=== PATIENT | female | born 1985 | race Caucasian/White ===

== ENCOUNTER 2017-10-13 07:35 | Emergency (ER) | payer OTHER ==
[2017-10-13] MEDS ORDERED: Ondansetron HCl/PF 4 MG/2 ML Vial ONE (08:55)
[2017-10-13 09:04] LABS: #Basophils 0.1 thou/uL (0.0-0.2); #Eosinphils 0.4 thou/uL (0.0-0.7); #Monocytes 0.5 thou/uL (0.11-0.59); #Neutrophils 5.5 thou/uL (1.40-6.50); %Basophils 1.5 % (0.0-1.0); %Eosinophils 4.1 % (0.0-10.0); %Lymphocytes 31.6 % (21.0-51.0); %Monocytes 5.6 % (0.0-10.0); %Neutrophils 57.3 % (42.0-75.0); Hemoglobin 13.2 g/dL (12.0-16.0); Mean Corpuscular HGB CONC 33.8 g/dL (32.0-36.0); Mean Corpuscular Hemoglobin 29.9 pg (27.0-31.0); Mean Corpuscular Volume 88.5 fl (81.0-99.0); Mean Platelet Volume 7.1 fL (7.4-10.4); Platelet Count 417 thou/uL (130-400); RBC Distribution Width 12.3 % (11.5-14.5); Red Blood Cell (RBC) Count 4.39 mill/uL (4.20-5.40); White Blood Cell (WBC) Count 9.6 thou/uL (4.8-10.8)
[2017-10-13 09:24] LABS: ALT (SGPT) 9 U/L (8-55); AST (SGOT) 13 U/L (5-34); Albumin 3.6 g/dL (3.5-5.0); Alkaline Phosphatase 67 U/L (40-150); Anion Gap 11 mmol/L (10-20); BUN (Urea Nitrogen) 9 mg/dL (7.0-18.7); Bilirubin, Total 0.2 mg/dL (0.2-1.2); Calc. Creatinine Clearance 0 mL/min (70-130); Calcium 8.7 mg/dL (7.8-10.44); Carbon Dioxide 22 mmol/L (22-29); Chloride 108 mmol/L (98-107); Estimated GFR-MDRD Greater than 90; Globulin 2.9 g/dL (2.4-3.5); Lipase 54 U/L (8-78); Protein, Total 6.5 g/dL (6.0-8.3); Sodium 137 mmol/L (136-145)
[2017-10-13 09:39] LABS: Glucose 54 mg/dL (70-105)
[2017-10-13 09:46] LABS: Bilirubin Negative (Negative); Blood, Urine Negative (Negative); Clarity CLEAR (Clear); Glucose, Urine (Dipstick) Negative (Negative); Leukocyte Negative (Negative); Nitrite Negative (Negative); Protein, Urine (Dipstick) Negative (Neg-Trace); Specific Gravity, Urine 1.019 (1.002-1.036); Urobilinogen 0.2 mg/dL (0.2-1.0)
[2017-10-13 09:58] LABS: Pregnancy Test - Urine (BHCG) Negative (Negative); Specific Gravity 1.019 (1.002-1.036)
[2017-10-13 09:59] LABS: Pregu Control Background? CLEAR/WHITE (CLR/WHITE); Pregu Control Bar Appear? YES (CONTROL BAR)
== END 2017-10-13 10:20 | disposition home or self-care (01) ==
LOC: ERS 07:35
DX: R11.2 Nausea with vomiting, unspecified (principal); R19.7 Diarrhea, unspecified; E10.9 Type 1 diabetes mellitus without complications; F31.9 Bipolar disorder, unspecified; F41.9 Anxiety disorder, unspecified; F17.210 Nicotine dependence, cigarettes, uncomplicated; Z79.899 Other long term (current) drug therapy
CPT/HCPCS: 36416; 80053; 81003; 81025; 83690; 85025; 96361; 96374; J2405

== ENCOUNTER 2017-11-26 15:10 | Emergency (ER) | payer OTHER ==
[2017-11-26 15:50] LABS: #Basophils 0.1 thou/uL (0.0-0.2); #Eosinphils 0.3 thou/uL (0.0-0.7); #Lymphocytes 2.7 thou/uL (1.20-3.40); #Monocytes 0.6 thou/uL (0.11-0.59); #Neutrophils 6.3 thou/uL (1.40-6.50); %Basophils 0.9 % (0.0-1.0); %Eosinophils 2.6 % (0.0-10.0); %Lymphocytes 27.2 % (21.0-51.0); %Monocytes 6.2 % (0.0-10.0); %Neutrophils 63.1 % (42.0-75.0); Hemoglobin 13.4 g/dL (12.0-16.0); Mean Corpuscular Hemoglobin 29.5 pg (27.0-31.0); Mean Corpuscular Volume 89.4 fl (81.0-99.0); Mean Platelet Volume 7.5 fL (7.4-10.4); Platelet Count 368 thou/uL (130-400); RBC Distribution Width 12.3 % (11.5-14.5); Red Blood Cell (RBC) Count 4.54 mill/uL (4.20-5.40)
[2017-11-26 16:06] LABS: Base Excess-Venous -4.3 mmol/L (0 (+/- 2.5)); Bicarbonate (HCO3v) 20.1 mmol/L (1.0-85.0); CO2 Tension (PvCO2) 34.2 mmHg (41.0-51.0); Calcium, Ionized 1.21 mmol/L (1.12-1.32); Hemoglobin - Calc 14.1 g/dL (12.0-18.0); O2 Tension (PvO2) 66.2 mmHg (35.0-45.0); Potassium 4.3 mmol/L (3.4-4.7); T. Carbon Dioxide 21.1 mmol/L (1.0-85.0); pH (Venous) 7.376 (7.35-7.45); vO2 Saturation-calc 92.5 % (94-98)
--- NOTE | 2017-11-26 16:11 | RAD ---
CHEST 1 VIEW: Date: 11/26/17 HISTORY: Abdominal pain. COMPARISON: 06/11/16. FINDINGS: Normal cardiac silhouette. Lungs and pleural spaces are clear. No pneumothorax or osseous abnormaliti es. IMPRESSION: No acute cardiopulmonary process. POS: [facility]
[2017-11-26 16:18] LABS: ALT (SGPT) 12 U/L (8-55); AST (SGOT) 14 U/L (5-34); Alkaline Phosphatase 93 U/L (40-150); Anion Gap 15 mmol/L (10-20); BUN (Urea Nitrogen) 13 mg/dL (7.0-18.7); Bilirubin, Total 0.2 mg/dL (0.2-1.2); Calc. Creatinine Clearance 0 mL/min (70-130); Calcium 9.1 mg/dL (7.8-10.44); Carbon Dioxide 19 mmol/L (22-29); Chloride 103 mmol/L (98-107); Estimated GFR-MDRD 74; Globulin 3.1 g/dL (2.4-3.5); Glucose 527 mg/dL (70-105); Magnesium 2.1 mg/dL (1.6-2.6); Phosphorus 3.5 mg/dL (2.3-4.7); Potassium 4.5 mmol/L (3.5-5.1); Protein, Total 7.1 g/dL (6.0-8.3); Sodium 132 mmol/L (136-145)
[2017-11-26] MEDS ORDERED: Insulin Regular 300 UNITS/3 ML VIAL ONE (16:53)
[2017-11-26 17:11] LABS: Bilirubin Negative (Negative); Blood, Urine Negative (Negative); Clarity CLEAR (Clear); Glucose, Urine (Dipstick) >=1000 mg/dL (Negative); Leukocyte Negative (Negative); Nitrite Negative (Negative); Protein, Urine (Dipstick) Negative (Neg-Trace); Specific Gravity, Urine 1.027 (1.002-1.036); Urobilinogen 0.2 mg/dL (0.2-1.0)
[2017-11-26 17:21] LABS: BHCG - Serum Negative (NEGATIVE); Pregs Control Background? CLEAR/WHITE (CLR/WHITE); Pregs Control Bar Appear? YES (CONTROL BAR)
== END 2017-11-26 18:35 | disposition home or self-care (01) ==
LOC: ERS 15:10
DX: E10.65 Type 1 diabetes mellitus with hyperglycemia (principal); F31.9 Bipolar disorder, unspecified; F41.9 Anxiety disorder, unspecified; F17.210 Nicotine dependence, cigarettes, uncomplicated; Z79.899 Other long term (current) drug therapy; Z71.6 Tobacco abuse counseling
CPT/HCPCS: 36416; 71045; 80053; 81003; 82010; 82330; 82803; 83735; 84100; 84703; 85025; 96361; 96374; 99406; J1815

== ENCOUNTER 2017-12-17 19:12 | Inpatient (IN) | payer OTHER, SELFPAY ==
[2017-12-17] MEDS ORDERED: Ketorolac Tromethamine 60 MG/2 ML VIAL ONE (21:38)
[2017-12-17] MEDS ORDERED: Dexamethasone 4 mg/ml Vial ONE (21:38)
[2017-12-17 22:09] LABS: Base Excess-Venous -6.8 mmol/L (0 (+/- 2.5)); Bicarbonate (HCO3v) 16.7 mmol/L (1.0-85.0); CO2 Tension (PvCO2) 28.4 mmHg (41.0-51.0); Calcium, Ionized 1.11 mmol/L (1.12-1.32); Hemoglobin - Calc 16.1 g/dL (12.0-18.0); O2 Tension (PvO2) 44.6 mmHg (35.0-45.0); Potassium 4.1 mmol/L (3.4-4.7); T. Carbon Dioxide 17.6 mmol/L (1.0-85.0); pH (Venous) 7.377 (7.35-7.45); vO2 Saturation-calc 80.3 % (94-98)
--- NOTE | 2017-12-17 22:18 | RAD ---
PORTABLE CHEST: 12/17/17 COMPARISON: 11/26/17 study. HISTORY: Sore throat and fever. IMPRESSION: Heart size and mediastinum are witin normal limits. The lungs appear clear of infiltrates. No signifi cant bony findings. IMPRESSION: No active intrathoracic disease. POS: [facility]
[2017-12-17 22:30] LABS: #Basophils 0.1 thou/uL (0.0-0.2); #Lymphocytes 2.2 thou/uL (1.20-3.40); #Neutrophils 5.7 thou/uL (1.40-6.50); %Basophils 0.8 % (0.0-1.0); %Eosinophils 0.3 % (0.0-10.0); %Lymphocytes 24.5 % (21.0-51.0); %Monocytes 10.8 % (0.0-10.0); %Neutrophils 63.7 % (42.0-75.0); Hemoglobin 13.9 g/dL (12.0-16.0); Mean Corpuscular HGB CONC 33.1 g/dL (32.0-36.0); Mean Corpuscular Hemoglobin 29.4 pg (27.0-31.0); Mean Corpuscular Volume 88.7 fl (81.0-99.0); Mean Platelet Volume 7.4 fL (7.4-10.4); Platelet Count 318 thou/uL (130-400); RBC Distribution Width 12.5 % (11.5-14.5); Red Blood Cell (RBC) Count 4.72 mill/uL (4.20-5.40)
[2017-12-17 22:33] LABS: Bilirubin Negative (Negative); Blood, Urine Negative (Negative); Clarity CLEAR (Clear); Glucose, Urine (Dipstick) >=1000 mg/dL (Negative); Leukocyte Negative (Negative); Nitrite Negative (Negative); Protein, Urine (Dipstick) Negative (Neg-Trace); Specific Gravity, Urine 1.034 (1.002-1.036); Urobilinogen 0.2 mg/dL (0.2-1.0)
[2017-12-17 22:55] LABS: ALT (SGPT) 12 U/L (8-55); AST (SGOT) 24 U/L (5-34); Albumin 3.9 g/dL (3.5-5.0); Alkaline Phosphatase 99 U/L (40-150); Anion Gap 21 mmol/L (10-20); BUN (Urea Nitrogen) 9 mg/dL (7.0-18.7); Bilirubin, Total 0.4 mg/dL (0.2-1.2); Calc. Creatinine Clearance 0 mL/min (70-130); Calcium 8.5 mg/dL (7.8-10.44); Carbon Dioxide 14 mmol/L (22-29); Chloride 100 mmol/L (98-107); Estimated GFR-MDRD 62; Globulin 3.6 g/dL (2.4-3.5); Glucose 437 mg/dL (70-105); Potassium 4.5 mmol/L (3.5-5.1); Protein, Total 7.5 g/dL (6.0-8.3); Sodium 130 mmol/L (136-145)
[2017-12-17] MEDS ORDERED: Dextrose 5% in Water 1,000 ML IV PRN (23:48)
[2017-12-17] MEDS ORDERED: Dextrose 50% Abboject 50 ML SYRINGE SLOW IVP PRN (23:48)
[2017-12-18] MEDS ORDERED: Insulin Glargine 15 UNITS in Pre-Filled Syringe 1 EACH SC SCH ×2 (00:45→21:00)
[2017-12-18] MEDS ORDERED: Ondansetron ODT 4 MG TAB SL PRN (02:05)
[2017-12-18] MEDS ORDERED: Ondansetron HCl/PF 4 MG/2 ML Vial IVP PRN (02:05)
[2017-12-18] MEDS ORDERED: Acetaminophen 325 MG TAB PO PRN (02:05)
[2017-12-18] MEDS: Sodium Chloride 0.9% 1,000 ML IV SCH ×2 (03:31→17:22)
[2017-12-18 04:08] VITALS: BMI 28.3
[2017-12-18] MEDS: Insulin Regular 300 UNITS/3 ML VIAL SC PRN ×4 (05:42→23:52)
[2017-12-18 06:31] LABS: Anion Gap 17 mmol/L (10-20); BUN (Urea Nitrogen) 15 mg/dL (7.0-18.7); Calc. Creatinine Clearance 106 mL/min (70-130); Calcium 7.8 mg/dL (7.8-10.44); Carbon Dioxide 12 mmol/L (22-29); Chloride 107 mmol/L (98-107); Estimated GFR-MDRD 74; Glucose 506 mg/dL (70-105); Phosphorus 3.6 mg/dL (2.3-4.7); Potassium 4.9 mmol/L (3.5-5.1); Sodium 131 mmol/L (136-145)
[2017-12-18] MEDS ORDERED: Cepastat Lozenges 1 LOZ PO PRN (07:19)
[2017-12-18] MEDS ORDERED: Chloraseptic Spray 180 ml Bottle PO PRN ×2 (07:19→15:42)
[2017-12-18] MEDS ORDERED: Milk Of Magnesia 30 ML UDCUP PO PRN (07:24)
[2017-12-18] MEDS ORDERED: Calcium Carbonate 500 MG ChewTAB PO PRN (07:24)
[2017-12-18] MEDS ORDERED: Sodium Chloride 0.9% 1,000 ML IV SCH (07:30)
[2017-12-18] MEDS ORDERED: Azithromycin 250 MG TAB PO SCH (07:30)
[2017-12-18] MEDS ORDERED: Insulin Detemir 100 UNITS/ML 30 UNITS in Pre-Filled Syringe 1 EACH SC SCH ×2 (07:30→21:00)
--- NOTE | 2017-12-18 07:45 | HP ---
DATE OF ADMISSION: 12/17/2017 PRIMARY CARE PHYSICIAN: Patient follows [facility]. CHIEF COMPLAINT: Sore throat. HISTORY OF PRESENT ILLNESS: The patient is a 32-year-old female with diabetes mellitus type 1, prese nted to the emergency room with above complaints. Over the last 2-3 days, the patient has sore throat with dry cough. Her maximum temperature at home was 101. She denies any sick contacts, shortness of breath or wheezing. No dysuria, hematuria, urge ncy, skin rash, recent travel, nausea, vomiting, diarrhea reported. In the emergency room, her initial vital signs showed temperature 99.4, respirations 20, pulse 116 wi th blood pressure 120/84. Her ketones was 4.78 with glucose of 437. Please note that patient did no t take Levemir insulin yesterday due to unable to swallow. Group A strep screen was negative in the emergency room. She received IV fluids along with insulin, Toradol, and Decadron. PAST MEDICAL HISTORY: 1. Diabetes mellitus type 1. 2. Anxiety and depression, bipolar disorder. 3. History of genital herpes. 4. Dyslipidemia. PAST SURGICAL HISTORY: 1. in 2006. 2. Appendectomy. 3. History of incision and drainage on the right hand. ALLERGIES: AMOXICILLIN. CURRENT HOME MEDICATIONS: Levemir 30 units twice a day with sliding scale, lithium 900 twice a day, Klonopin as needed. SOCIAL HISTORY: The patient continues to smoke up to 1 pack a day. Drinks alcohol socially. Denies any drug use. FAMILY HISTORY: Positive for hypertension and diabetes. REVIEW OF SYSTEMS: The following complete review of systems was negative, unless otherwise mentioned in the HPI or below: Constitutional: Weight loss or gain, ability to conduct usual activities. Skin: Rash, itching. Eyes: Double vision, pain. ENT/Mouth: Nose bleeding, neck stiffness, pain, tenderness. Cardiovascular: Palpitations, dyspnea on exertion, orthopnea. Respiratory: Shortness of breath, wheezing, cough, hemoptysis, fever or night sweats. Gastrointestinal: Poor appetite, abdominal pain, heartburn, nausea, vomiting, constipation, or diarr hea. Genitourinary: Urgency, frequency, dysuria, nocturia. Musculoskeletal: Pain, swelling. Neurologic/Psychiatric: Anxiety, depression. Allergy/Immunologic: Skin rash, bleeding tendency. PHYSICAL EXAMINATION: VITAL SIGNS: As discussed above. GENERAL: A 32-year-old female with sore throat. HEENT: Head is atraumatic, normocephalic. Sclerae are anicteric. Dry mucous membranes, some erythe ma over the posterior pharynx. NECK: Supple, no JVD, no carotid bruit. LUNGS: Clear to auscultation bilaterally, no wheezing, rales or rhonchi. HEART: S1, S2 present. Regular rate and rhythm, tachycardic, no rubs or gallops. ABDOMEN: Soft, nontender, bowel sounds present. EXTREMITIES: No edema or calf tenderness. NEUROLOGIC: Grossly nonfocal, moves all four extremities. PSYCHIATRY: Alert, awake, oriented x3. SKIN: Warm and dry. LYMPH NODES: No palpable lymph nodes in the neck. PERIPHERAL VASCULAR: Radial pulses palpable bilaterally. MUSCULOSKELETAL: No joint swelling or tenderness. LABORATORY DATA AND X-RAY FINDINGS: CBC showed WBC 9 with hemoglobin 13.9, monocyte 10.8. VBG showe d pH 7.37 with pCO2 of 28.4. Chemistries showed sodium 130 with potassium 4.5, bicarbonate 14, anion gap of 21, ketones 4.78. Chest x-ray by my review was negative for infiltrate. IMPRESSION AND PLAN: 1. Diabetic ketoacidosis. Please note that patient has missed Levemir dose due to unable to take or al diet. The patient will continue IV fluids with Levemir and moderate sliding scale q.4 hourly. We will repeat ketones in a.m. We will monitor labs closely. She denies any chest pain, shortness of breath or focal neurologic deficit. 2. Viral syndrome. A respiratory viral panel has been sent. We will start her on azithromycin unti l the respiratory viral panel comes back. 3. Dehydration/metabolic acidosis due to diabetic ketoacidosis. 4. Chronic kidney disease, stage 2. 5. History of diabetes mellitus type 1, on insulin. 6. Anxiety, depression, bipolar disorder. We will resume her home medications after confirming. 7. Hyperlipidemia. Plan of care was discussed with the patient in detail. She stated understanding.
[2017-12-18] MEDS: Sodium Chloride 0.45% 1,000 ML IV SCH ×3 (08:43→21:30)
[2017-12-18] MEDS ORDERED: Insulin Glargine 30 UNITS in Pre-Filled Syringe 1 EACH SC SCH (09:00)
[2017-12-18 09:47] LABS: BHCG - Serum Negative (NEGATIVE); Pregs Control Background? CLEAR/WHITE (CLR/WHITE); Pregs Control Bar Appear? YES (CONTROL BAR)
[2017-12-18 10:13] LABS: Anion Gap 13 mmol/L (10-20); BUN (Urea Nitrogen) 15 mg/dL (7.0-18.7); Calc. Creatinine Clearance 114 mL/min (70-130); Calcium 7.9 mg/dL (7.8-10.44); Carbon Dioxide 13 mmol/L (22-29); Chloride 109 mmol/L (98-107); Estimated GFR-MDRD 81; Glucose 410 mg/dL (70-105); Potassium 4.7 mmol/L (3.5-5.1); Sodium 130 mmol/L (136-145)
[2017-12-18 14:31] LABS: BUN (Urea Nitrogen) 12 mg/dL (7.0-18.7); Calc. Creatinine Clearance 118 mL/min (70-130); Calcium 8.7 mg/dL (7.8-10.44); Chloride 104 mmol/L (98-107); Estimated GFR-MDRD 84; Glucose 292 mg/dL (70-105); Sodium 130 mmol/L (136-145)
[2017-12-18 14:32] LABS: Carbon Dioxide 20 mmol/L (22-29)
[2017-12-18 14:35] LABS: Anion Gap 10 mmol/L (10-20)
[2017-12-18] MEDS: Acetaminophen/Codeine 30-300mg Tablet PO PRN ×2 (16:06→20:25)
[2017-12-18] MEDS ORDERED: Lidocaine 2% Viscous Solution 10 ML, Aluminum & Magnesium Hydroxide 30 ML SSW SCH (16:30)
[2017-12-18] MEDS ORDERED: clonazePAM 1 MG TAB PO SCH (16:45)
[2017-12-18 18:27] LABS: Anion Gap 8 mmol/L (10-20); BUN (Urea Nitrogen) 10 mg/dL (7.0-18.7); Calc. Creatinine Clearance 127 mL/min (70-130); Calcium 8.1 mg/dL (7.8-10.44); Carbon Dioxide 21 mmol/L (22-29); Chloride 108 mmol/L (98-107); Estimated GFR-MDRD Greater than 90; Glucose 171 mg/dL (70-105); Potassium 3.9 mmol/L (3.5-5.1); Sodium 133 mmol/L (136-145)
[2017-12-18] MEDS: Insulin Glargine 30 UNITS in Pre-Filled Syringe 1 EACH SC SCH (20:00)
[2017-12-18] MEDS: Benzonatate 100 MG CAP PO SCH (20:06)
[2017-12-18] MEDS: ALPRAZolam 0.25 MG TAB PO PRN (20:25)
[2017-12-18] MEDS ORDERED: Lithium Carbonate ER 450 mg Tablet PO SCH (21:00)
[2017-12-18] MEDS: Lidocaine 2% Viscous Solution 10 ML, Aluminum & Magnesium Hydroxide 30 ML SSW PRN (21:06)
[2017-12-18] MEDS: Guaifenesin DM 100-10/5 ML UDCUP PO PRN (22:11)
[2017-12-19] MEDS: Acetaminophen/Codeine 30-300mg Tablet PO PRN ×2 (03:42→11:23)
[2017-12-19] MEDS: ALPRAZolam 0.25 MG TAB PO PRN (03:42)
[2017-12-19] MEDS: Guaifenesin DM 100-10/5 ML UDCUP PO PRN (03:43)
[2017-12-19] MEDS: Insulin Regular 300 UNITS/3 ML VIAL SC PRN (03:47)
[2017-12-19] MEDS: Sodium Chloride 0.45% 1,000 ML IV SCH ×2 (04:34→10:12)
[2017-12-19 06:19] LABS: Albumin 3.1 g/dL (3.5-5.0); Anion Gap 8 mmol/L (10-20); BUN (Urea Nitrogen) 7 mg/dL (7.0-18.7); BUN/Creatinine Ratio 9.72; Calc. Creatinine Clearance 131 mL/min (70-130); Calcium 7.7 mg/dL (7.8-10.44); Carbon Dioxide 22 mmol/L (22-29); Chloride 109 mmol/L (98-107); Estimated GFR-MDRD Greater than 90; Glucose 169 mg/dL (70-105); Phosphorus 1.5 mg/dL (2.3-4.7); Potassium 3.7 mmol/L (3.5-5.1); Sodium 135 mmol/L (136-145)
[2017-12-19] MEDS: Benzonatate 100 MG CAP PO SCH ×2 (08:17→15:26)
[2017-12-19] MEDS: Acetaminophen 325 MG TAB PO PRN ×2 (08:17→16:06)
[2017-12-19] MEDS: Lidocaine 2% Viscous Solution 10 ML, Aluminum & Magnesium Hydroxide 30 ML SSW PRN (08:18)
[2017-12-19] MEDS: Insulin Glargine 30 UNITS in Pre-Filled Syringe 1 EACH SC SCH (08:27)
[2017-12-19] MEDS ORDERED: clonazePAM 1 MG TAB PO SCH (09:00)
[2017-12-19] MEDS ORDERED: Azithromycin 250 MG TAB PO SCH (09:00)
[2017-12-19] MEDS ORDERED: Potassium Phosphate 12 MMOL in Sodium Chloride 0.9% 250 ML 250 ML IVPB SCH (09:30)
[2017-12-19 16:36] VITALS: BP 107/65
[2017-12-19 16:40] VITALS: TEMP 99.3
[2017-12-19] MEDS ORDERED: guaiFENesin/DM ER PO SCH (21:00)
--- NOTE | 2017-12-20 01:58 | DIS ---
PRIMARY CARE PROVIDER: [facility] DATE OF ADMISSION: 12/17/2017 DATE OF DISCHARGE: 12/19/2017 DISCHARGE DIAGNOSES: 1. Diabetic ketoacidosis. 2. Viral syndrome secondary to adenovirus infection. DISCHARGE MEDICATIONS: Z-Luke, clonazepam 2 mg in the morning, Levemir 30 units 2 times a day, lithiu m carbonate 900 mg every evening. HOSPITAL COURSE: Ms. Bowman is a pleasant 32-year-old lady who was admitted to [facility] on 12/17/2017 for diabetic ketoacidosis as well as dry cough and sore throat. She was u nable to swallow food, therefore did not take her Levemir insulin. In the hospital, she received intravenous fluids. She also received insulin. Diabetic ketoacidosis, resolved. She is able to tolerate liquid diet. She was started on azithromycin at the time of admi ssion and is being discharged home on Z-Luke. Respiratory virus panel was positive for adenovirus. G roup A streptococcal culture was negative. Group A streptococcal screen was negative as well. She is advised to follow up with her primary care provider in 3-5 days' time. At this point in time, she is still coughing quite a bit. She has been advised to take over the counter antitussives. She also had a low phosphorus of 1.5 on the day of discharge, which is being replaced intravenously p rior to discharge. Her creatinine during this hospitalization was normal. Sodium is 135 on 12/20/19 18. Corrected calcium for albumin is in the normal range at 8.4. DISCHARGE DESTINATION: Home. TOTAL AMOUNT OF TIME SPENT COORDINATING THIS DISCHARGE: 31 minutes.
== END 2017-12-19 16:52 | disposition home or self-care (01) | DRG 639 ==
LOC: ERS 19:12 → ONC 23:50
PROVIDERS: ADMIT Internal Medicine; ATTEND Internal Medicine
DX: E10.10 Type 1 diabetes mellitus with ketoacidosis without coma (principal); F31.9 Bipolar disorder, unspecified; F41.9 Anxiety disorder, unspecified; E78.5 Hyperlipidemia, unspecified; Z88.0 Allergy status to penicillin; Z79.899 Other long term (current) drug therapy; Z79.4 Long term (current) use of insulin; F17.210 Nicotine dependence, cigarettes, uncomplicated; B34.9 Viral infection, unspecified; N18.2 Chronic kidney disease, stage 2 (mild); E10.22 Type 1 diabetes mellitus with diabetic chronic kidney disease; E86.0 Dehydration; B97.0 Adenovirus as the cause of diseases classified elsewhere; E83.39 Other disorders of phosphorus metabolism
CPT/HCPCS: 36415; 36416; 71045; 80048; 80053; 80069; 81003; 82010; 82330; 82803; 83605; 83735; 84100; 84703; 85025; 87081; 87430; 87633; 96360; 96361; 96372; J1100; J1815; J1885; J7050

== ENCOUNTER 2017-12-21 15:20 | Inpatient (IN) | payer OTHER, SELFPAY ==
[~2017-12-21 15:20] MED LIST: ISOVUE-370 76%-LOCM 1 ML ONE
[2017-12-21 16:03] LABS: #Basophils 0.1 thou/uL (0.0-0.2); #Eosinphils 0.2 thou/uL (0.0-0.7); #Lymphocytes 2.2 thou/uL (1.20-3.40); #Monocytes 0.8 thou/uL (0.11-0.59); #Neutrophils 4.4 thou/uL (1.40-6.50); %Basophils 1.2 % (0.0-1.0); %Lymphocytes 28.8 % (21.0-51.0); %Monocytes 10.6 % (0.0-10.0); %Neutrophils 57.4 % (42.0-75.0); Hemoglobin 14.4 g/dL (12.0-16.0); Mean Corpuscular HGB CONC 32.2 g/dL (32.0-36.0); Mean Corpuscular Hemoglobin 29.2 pg (27.0-31.0); Mean Corpuscular Volume 90.9 fl (81.0-99.0); Mean Platelet Volume 7.5 fL (7.4-10.4); Platelet Count 303 thou/uL (130-400); RBC Distribution Width 12.6 % (11.5-14.5); Red Blood Cell (RBC) Count 4.94 mill/uL (4.20-5.40); White Blood Cell (WBC) Count 7.7 thou/uL (4.8-10.8)
[2017-12-21 16:24] LABS: ALT (SGPT) 8 U/L (8-55); AST (SGOT) 16 U/L (5-34); Albumin 3.7 g/dL (3.5-5.0); Alkaline Phosphatase 93 U/L (40-150); Anion Gap 14 mmol/L (10-20); BUN (Urea Nitrogen) Less than 4 mg/dL (7.0-18.7); Bilirubin, Total 0.4 mg/dL (0.2-1.2); CK (CPK) 36 U/L (29-168); Calc. Creatinine Clearance 0 mL/min (70-130); Calcium 8.5 mg/dL (7.8-10.44); Carbon Dioxide 21 mmol/L (22-29); Chloride 103 mmol/L (98-107); Estimated GFR-MDRD Greater than 90; Globulin 3.3 g/dL (2.4-3.5); Glucose 313 mg/dL (70-105); Potassium 3.4 mmol/L (3.5-5.1); Sodium 135 mmol/L (136-145)
[2017-12-21 16:29] LABS: CKMB 0.1 ng/mL (0-6.6); Troponin I Less than 0.010 ng/mL (< 0.028)
--- NOTE | 2017-12-21 18:07 | RAD ---
CHEST ONE VIEW: HISTORY: Cough. Chest pain. COMPARISON: Radiograph from 12/17/2017. FINDINGS: Nodular density, right lower lobe, likely a prominent nipple shadow. No focal air space consolidatio n, pneumothorax, or effusion. The cardiac silhouette and mediastinal contour is within normal limits. IMPRESSION: No acute intrathoracic abnormality. POS: [facility]
[2017-12-21] MEDS ORDERED: Lidocaine Viscous Sol 2% 15 ml UD Cup ONE (18:42)
[2017-12-21] MEDS ORDERED: Mag-Al 1200 mg/1200 mg/30 ML UDCUP ONE (18:42)
[2017-12-21] MEDS ORDERED: Acetaminophen 500 MG TAB ONE (18:49)
[2017-12-21] MEDS ORDERED: Ondansetron ODT 4 MG TAB ONE (18:54)
--- NOTE | 2017-12-21 21:33 | CT ---
CT ANGIOGRAM CHEST WITH CONTRAST: HISTORY: Evaluate for pulmonary embolism. COMPARISON: Chest radiograph from 12/21/2017. TECHNIQUE: CT angiogram chest was performed after the intravenous administration of contrast, and 3D rendering w as provided. FINDINGS: No proximal segmental pulmonary arterial filling defect. Pulmonary trunk size is normal. No pericardial effusion. Aortic size is normal. Mildly prominent, likely reactive lymph nodes of th e mediastinum. There are right multifocal air space opacities involving the right middle lobe, right lower lobe, and left lower lobe. There are air bronchograms through these opacities, suggesting multifocal bronchop neumonia. No pneumothorax. No significant effusion. The upper abdomen is unremarkable. There is anterior disk osteophyte complex at T12-L1. No displaced rib fracture. IMPRESSION: 1. No proximal segmental pulmonary arterial filling defect. 2. Findings indicative of multifocal lower lobe and right middle lobe bronchopneumonia. Follow up re commended. POS: [facility]
[2017-12-21] MEDS ORDERED: Lorazepam 2 MG/ML VIAL ONE (21:44)
[2017-12-21] MEDS ORDERED: Morphine 4 MG/ML VIAL ONE (21:44)
[2017-12-22] MEDS ORDERED: Ondansetron ODT 4 MG TAB ONE (00:01)
[2017-12-22] MEDS ORDERED: Ondansetron ODT 4 MG TAB SL PRN (01:17)
[2017-12-22] MEDS ORDERED: Ondansetron HCl/PF 4 MG/2 ML Vial IVP PRN (01:17)
[2017-12-22] MEDS ORDERED: Sodium Chloride 0.9% 1,000 ML IV SCH (01:30)
[2017-12-22] MEDS: Morphine 4 MG/ML VIAL SLOW IVP PRN ×2 (02:14→06:35)
[2017-12-22] MEDS ORDERED: Chloraseptic Spray 180 ml Bottle PO PRN (02:30)
[2017-12-22] MEDS ORDERED: Non-Formulary Item 1 EACH (Insulin Aspart [Novolog] 100 UNIT) SQ PRN (02:30)
[2017-12-22] MEDS ORDERED: Diabetic Tussin DM 5 ML UDCUP PO PRN ×2 (02:32→19:30)
[2017-12-22] MEDS ORDERED: Bisacodyl 5 MG TAB PO PRN (03:05)
[2017-12-22 04:27] VITALS: BMI 28.0
--- NOTE | 2017-12-22 05:03 | HP ---
PRIMARY CARE PHYSICIAN: Dr. Iyer. CHIEF COMPLAINT: Painful cough. HISTORY OF PRESENT ILLNESS: This is a 32-year-old female who was recently discharged with empiric an tibiotics for an upper respiratory infection 2 days ago for viral syndrome secondary to adenovirus in fection. On that prior hospitalization, she had diabetic ketoacidosis on admission as well and that was actually her primary presenting symptom. At the time of my evaluation, the patient has been seen in the emergency department. She has undergo ne a CT of the chest which demonstrates multifocal pneumonia. The patient is still having a painful cough in the emergency department, has required IV morphine for pain control and so therefore, the pa margaret is requested for admission for pneumonia, failure for outpatient treatment. REVIEW OF SYSTEMS: As per HPI. Constitutional: The patient denies any significant weight changes. Denies any overt fevers or chills. HEENT: No new headaches, vision changes, dizziness, or lighthea dedness. Respiratory: As per above, patient mostly complaining of scantly productive cough, it is p ainful because of its recurrence with some shortness of breath accompanying this as well. Cardiovasc ular: Endorses some chest pain only when coughing. No chest pain while at rest. No left-sided arm numbness or tingling. Gastrointestinal: No nausea, no vomiting, no abdominal pain, no issues with d iarrhea or constipation. Genitourinary: No dysuria. No changes in urinary frequency quantity or qu ality. Musculoskeletal: No new myalgias or arthralgias. PAST MEDICAL HISTORY: As per HPI, significant for; 1. Type 1 diabetes with prior episodes of DKA. 2. Genital herpes. 3. Migraines. 4. Status post . 5. Surgical debridement. 6. Status post appendectomy. 7. Bipolar disorder. 8.. PTSD. 9. Anxiety and depression. HOME MEDICATIONS: Please see the home medication list for full details. Briefly, the patient takes insulin, Chloraseptic spray, lurasidone, clonazepam, lithium carbonate, Levemir, FlexPen, and was rec ently prescribed a Z-Luke. ALLERGIES: AMOXICILLIN which causes a rash. FAMILY HISTORY: Significant for diabetes and hypertension. SOCIAL HISTORY: The patient endorses tobacco use, intermittent alcohol use, but none in the last 2 w eeks and denies any illicit drug use. She is currently precontemplative of tobacco use cessation. PHYSICAL EXAMINATION: GENERAL: The patient is awake, alert, conversant, in no acute distress, lying in the hospital bed. CARDIOVASCULAR: S1, S2. No murmurs, rubs or gallops. Pulses 2+ bilateral upper extremities. No pi tting pedal edema. RESPIRATORY: Diminished throughout with some scattered end expiratory wheezing, but otherwise clear to auscultation. ABDOMEN: Positive bowel sounds, soft, nontender to palpation. MUSCULOSKELETAL: Moving all 4 extremities independently, able to self-reposition in the bed without difficulty or assistance. LABORATORY DATA AND IMAGING: CTA of the chest. Impression: "No proximal segmental pulmonary arteri al filling defect. Findings indicative of multifocal lower lobe and right middle lobe bronchopneumon ia. Follow up recommended." WBC 7.7, hemoglobin 14.4, hematocrit 44.9, platelets 303,000. Sodium 1 35, potassium 3.4, chloride 103, bicarb 21, BUN less than 4, creatinine 0.73, glucose 313, lactic aci d 0.9, calcium 8.5, total bilirubin 0.4, AST 16, ALT 8, alkaline phosphatase 93. Troponin less than 0.01. Total protein 7.0, albumin 3.7. ASSESSMENT AND PLAN: A 32-year-old female presenting with a chief complaint of cough. 1. Severe cough. Supportive management with Robitussin pain medications if needed, but predominantl y focused on antitussive regimen. 2. Pneumonia, multifocal pneumonia without leukocytosis, fever, hypotension, hypoxia, or tachypnea. I will place the patient on Levaquin 500 mg p.o. daily and closely monitor the patient's respiratory status. 3. Insulin-dependent diabetes. Continue the patient on her home regimen. 4. Psychiatric issues including bipolar, anxiety, and depression. Continue the patient on her home regimen. 5. Diet: Diabetic. 6. Activity: As tolerated. 7. Deep venous thrombosis prophylaxis: Enoxaparin. Admit the patient to observation status.
[2017-12-22 06:00] LABS: #Eosinphils 0.2 thou/uL (0.0-0.7); #Lymphocytes 2.7 thou/uL (1.20-3.40); #Monocytes 0.8 thou/uL (0.11-0.59); #Neutrophils 2.1 thou/uL (1.40-6.50); %Basophils 0.4 % (0.0-1.0); %Eosinophils 3.8 % (0.0-10.0); %Lymphocytes 46.7 % (21.0-51.0); %Monocytes 13.1 % (0.0-10.0); Hemoglobin 11.8 g/dL (12.0-16.0); Mean Corpuscular HGB CONC 32.7 g/dL (32.0-36.0); Mean Corpuscular Hemoglobin 29.1 pg (27.0-31.0); Mean Corpuscular Volume 88.9 fl (81.0-99.0); Mean Platelet Volume 7.5 fL (7.4-10.4); Platelet Count 266 thou/uL (130-400); RBC Distribution Width 12.5 % (11.5-14.5); Red Blood Cell (RBC) Count 4.05 mill/uL (4.20-5.40); White Blood Cell (WBC) Count 5.8 thou/uL (4.8-10.8)
[2017-12-22 06:18] LABS: Anion Gap 9 mmol/L (10-20); BUN (Urea Nitrogen) Less than 4 mg/dL (7.0-18.7); Calc. Creatinine Clearance 170 mL/min (70-130); Calcium 7.7 mg/dL (7.8-10.44); Carbon Dioxide 23 mmol/L (22-29); Chloride 109 mmol/L (98-107); Estimated GFR-MDRD Greater than 90; Glucose 106 mg/dL (70-105); Potassium 3.1 mmol/L (3.5-5.1); Sodium 138 mmol/L (136-145)
[2017-12-22] MEDS ORDERED: Lurasidone HCl 40 MG TABLET PO SCH (09:00)
[2017-12-22] MEDS ORDERED: Non-Formulary Item 1 EACH (Levemir Flexpen [Levemir Flexpen] 30 UNIT) SC SCH (09:00)
[2017-12-22] MEDS: clonazePAM 1 MG TAB PO PRN (09:16)
[2017-12-22] MEDS: Docusate 100 MG CAP PO SCH ×2 (09:34→20:07)
[2017-12-22] MEDS: Enoxaparin Sodium 30 MG/0.3 ML SYRINGE SC SCH (09:34)
[2017-12-22] MEDS: Insulin Glargine 30 UNITS in Pre-Filled Syringe 1 EACH SC SCH ×2 (09:34→20:03)
[2017-12-22] MEDS ORDERED: Dextrose 50% Abboject 50 ML SYRINGE IVP PRN (11:16)
[2017-12-22] MEDS ORDERED: HumaLOG 300 UNITS/3 ML VIAL SC PRN ×2 (11:16)
[2017-12-22] MEDS ORDERED: HYDROcodone/Acetaminophen 5/325 mg Tablet PO PRN (11:16)
[2017-12-22] MEDS ORDERED: Dextrose 5% in Water 1,000 ML IV PRN (11:16)
[2017-12-22] MEDS: HYDROcodone/Acetaminophen 5/325 mg Tablet PO PRN ×2 (16:31→21:00)
[2017-12-22] MEDS ORDERED: Diabetic Tussin 200 MG/10 ML UDCUP PO PRN (19:21)
[2017-12-22] MEDS: Guaifenesin DM 100-10/5 ML UDCUP PO PRN (19:58)
[2017-12-23] MEDS: Docusate 100 MG CAP PO SCH (10:32)
[2017-12-23] MEDS: Enoxaparin Sodium 30 MG/0.3 ML SYRINGE SC SCH (10:32)
[2017-12-23] MEDS: Insulin Glargine 30 UNITS in Pre-Filled Syringe 1 EACH SC SCH (10:32)
[2017-12-23] MEDS: HYDROcodone/Acetaminophen 5/325 mg Tablet PO PRN (11:04)
[2017-12-23] MEDS: Guaifenesin DM 100-10/5 ML UDCUP PO PRN (11:13)
[2017-12-23 11:39] VITALS: BP 130/87; TEMP 98.8
[2017-12-23] MEDS: clonazePAM 1 MG TAB PO PRN (12:25)
[2017-12-23] MEDS ORDERED: Clindamycin/D5W 600 MG in Premix Bag 1 BAG IVPB SCH (14:00)
--- NOTE | 2017-12-24 14:02 | DIS ---
DATE OF ADMISSION: 12/21/2017 DATE OF DISCHARGE: 12/23/2017 ADMITTING DIAGNOSIS: Acute right lung pneumonia. DISCHARGE DIAGNOSIS: Acute right lung pneumonia. SECONDARY DIAGNOSES. 1. Anxiety attack. 2. Type 1 diabetes. 3. History of migraine headaches. 4. History of bipolar disorder. 5. Posttraumatic stress disorder. HISTORY OF PRESENT ILLNESS AND HOSPITAL COURSE: In brief, this is a 32-year-old female recently was discharged with empiric antibiotics for an upper respiratory infection and viral syndrome secondary t o adenovirus infection. The patient also had a history of diabetic ketoacidosis in the previous admi ssion, so because of her multiple comorbidities and failed outpatient therapy, she had to be readmitt ed as the patient was having worsening cough and congestion and a CT of the chest showing an evidence of multifocal pneumonia, more concentrated in the right lung. So, the patient was initially started on levofloxacin and white count remained normal and she had no fevers and was initially on nasal can nula, but later on she was off of the nasal cannula and was not coughing. Patient was requesting to go home as she was feeling better and she was started on clindamycin as a second drug. Because of th e suspicion for aspiration pneumonia. The patient showed good improvement and she wanted to go home. The patient was discharged home in stable condition. PHYSICAL EXAMINATION: On day of discharge, VITAL SIGNS: Blood pressures are 130/87, heart rate is 101, respiratory rate is 22, and saturation 9 4% on room air. GENERAL: The patient is moderately built, moderately nourished. She does not appear to be in acute distress. CARDIOVASCULAR: S1 and S2 normal. No murmurs, rubs or gallops. LUNGS: Bilateral air entry was equal. No wheezing, no crackles. ABDOMEN: Soft, nontender, no guarding, no rebound tenderness. Bowel sounds normal. MUSCULOSKELETAL: No calf tenderness. No pedal edema. No joint tenderness, no joint swelling. SKIN: No cyanosis, no erythema, no rash, no pallor. CENTRAL NERVOUS SYSTEM: Cranial nerve examination II through XII intact. No focal deficits were not ed. DISCHARGE MEDICATIONS: Clonazepam 1 mg p.o. b.i.d., insulin aspart 100 units subcu p.r.n., Levemir 3 0 units subcu b.i.d., lithium carbonate 900 mg p.o. at bedtime and Latuda 40 mg p.o. daily. New medications prescribed are clindamycin 300 mg p.o. t.i.d. and levofloxacin 500 mg p.o. daily, abo ve continue for 5 more days. DISCHARGE INSTRUCTIONS: Continue activity as tolerated. Advised to follow up with the primary care physician in one week as the patient was sent home early and advised to get a repeat chest x-ray at [facility] within 1 week to look for any evidence of worsening pneumonia. I advised the patient that if she starts developing fever or worsening cough, needs to return back to the ER as oral medications might not be covering that. Advised to continue on the diabetic diet. Continue activity as tolerated. I spent 35 minutes with this patient on the day of discharge.
== END 2017-12-23 14:20 | disposition home or self-care (01) | DRG 195 ==
LOC: ERS 15:20 → 2SE 21:20
PROVIDERS: ADMIT Internal Medicine; ATTEND Internal Medicine
DX: J18.9 Pneumonia, unspecified organism (principal); E10.9 Type 1 diabetes mellitus without complications; Z79.4 Long term (current) use of insulin; F31.9 Bipolar disorder, unspecified; F41.9 Anxiety disorder, unspecified; I10 Essential (primary) hypertension
CPT/HCPCS: 36415; 36416; 71045; 71275; 80048; 80053; 82553; 83605; 84484; 85025; 87040; 93005; 94640; 96365; 96366; 96375; 99406; A4216; J1650; J1956; J2060; J2270; J7620; Q0162

== ENCOUNTER 2018-05-27 20:28 | Emergency (ER) | payer OTHER ==
[2018-05-27] MEDS ORDERED: Ondansetron ODT 4 MG TAB ONE (20:57)
[2018-05-27 21:10] LABS: Bilirubin Negative (Negative); Blood, Urine Trace (Negative); Clarity CLEAR (Clear); Glucose, Urine (Dipstick) >=1000 mg/dL (Negative); Leukocyte Negative (Negative); Nitrite Negative (Negative); Protein, Urine (Dipstick) Negative (Neg-Trace); Specific Gravity, Urine 1.034 (1.002-1.036); Urobilinogen 0.2 mg/dL (0.2-1.0)
[2018-05-27 21:11] LABS: Bacteria/HPF None Seen HPF (None Seen); Hyaline Casts/LPF 0-3 HYALINE CAST LPF (0-3 Hyaline); Squamous Epithelial 0-3 HPF (0-3)
[2018-05-27 21:12] LABS: Pregnancy Test - Urine (BHCG) Negative (Negative); Pregu Control Background? CLEAR/WHITE (CLR/WHITE); Pregu Control Bar Appear? YES (CONTROL BAR); Specific Gravity 1.034 (1.002-1.036)
[2018-05-27] MEDS ORDERED: Ondansetron HCl/PF 4 MG/2 ML Vial ONE (21:12)
[2018-05-27 21:17] LABS: #Basophils 0.1 thou/uL (0.0-0.2); #Eosinphils 0.1 thou/uL (0.0-0.7); #Lymphocytes 4.1 thou/uL (1.20-3.40); #Monocytes 0.6 thou/uL (0.11-0.59); #Neutrophils 4.9 thou/uL (1.40-6.50); %Basophils 1.1 % (0.0-1.0); %Eosinophils 1.3 % (0.0-10.0); %Lymphocytes 41.4 % (21.0-51.0); %Monocytes 6.4 % (0.0-10.0); %Neutrophils 49.7 % (42.0-75.0); Hemoglobin 13.3 g/dL (12.0-16.0); Mean Corpuscular HGB CONC 32.8 g/dL (32.0-36.0); Mean Corpuscular Hemoglobin 28.8 pg (27.0-31.0); Mean Corpuscular Volume 87.9 fL (78.0-98.0); Mean Platelet Volume 7.6 fL (7.4-10.4); Platelet Count 476 thou/uL (130-400); RBC Distribution Width 13.6 % (11.5-14.5); Red Blood Cell (RBC) Count 4.61 mill/uL (4.20-5.40); White Blood Cell (WBC) Count 9.8 thou/uL (4.8-10.8)
[2018-05-27 21:21] LABS: Base Excess-Venous -2.7 mmol/L (0 (+/- 2.5)); Bicarbonate (HCO3v) 20.2 mmol/L (1.0-85.0); CO2 Tension (PvCO2) 29.3 mmHg (41.0-51.0); Calcium, Ionized 1.18 mmol/L (1.12-1.32); Hemoglobin - Calc 14.1 g/dL (12.0-18.0); O2 Tension (PvO2) 93.6 mmHg (35.0-45.0); Potassium 3.8 mmol/L (3.4-4.7); T. Carbon Dioxide 21.1 mmol/L (1.0-85.0); pH (Venous) 7.446 (7.35-7.45); vO2 Saturation-calc 97.7 % (94-98)
[2018-05-27 21:33] LABS: ALT (SGPT) 10 U/L (8-55); AST (SGOT) 10 U/L (5-34); Albumin 4.2 g/dL (3.5-5.0); Alkaline Phosphatase 83 U/L (40-150); Anion Gap 15 mmol/L (10-20); BUN (Urea Nitrogen) 13 mg/dL (7.0-18.7); Bilirubin, Total 0.3 mg/dL (0.2-1.2); Calc. Creatinine Clearance 0 mL/min (70-130); Calcium 9.9 mg/dL (7.8-10.44); Carbon Dioxide 20 mmol/L (22-29); Chloride 107 mmol/L (98-107); Estimated GFR-MDRD 70; Globulin 3.2 g/dL (2.4-3.5); Glucose 289 mg/dL (70-105); Potassium 4.1 mmol/L (3.5-5.1); Protein, Total 7.4 g/dL (6.0-8.3); Sodium 138 mmol/L (136-145)
[2018-05-27] MEDS ORDERED: Insulin Regular 300 UNITS/3 ML VIAL ONE (21:33)
[2018-05-27] MEDS ORDERED: Haloperidol Lactate 5 MG/ML VIAL ONE (21:33)
[2018-05-27] MEDS ORDERED: diphenhydrAMINE 50 MG/ML VIAL ONE (21:34)
--- NOTE | 2018-05-27 21:45 | RAD ---
CHEST ONE VIEW: 05/27/18 HISTORY: Cough. COMPARISON: 12/21/17 FINDINGS: Cardiac silhouette is magnified by projection. Pulmonary vasculature is unremarkable. Mediastinum is midline. No lobar consolidation or evidence of pneumothorax. IMPRESSION: No active cardiopulmonary abnormalities are demonstrated. POS: [facility]
[2018-05-27] MEDS ORDERED: cefTRIAXone\\ROCEPHIN 1 GM VIAL ONE (22:44)
== END 2018-05-27 23:48 | disposition home or self-care (01) ==
LOC: ERS 20:28
DX: E86.0 Dehydration (principal); E10.43 Type 1 diabetes mellitus with diabetic autonomic (poly)neuropathy; K31.84 Gastroparesis; N39.0 Urinary tract infection, site not specified; E10.10 Type 1 diabetes mellitus with ketoacidosis without coma; F41.9 Anxiety disorder, unspecified; F32.9 Major depressive disorder, single episode, unspecified; F17.210 Nicotine dependence, cigarettes, uncomplicated; Z79.4 Long term (current) use of insulin; Z79.899 Other long term (current) drug therapy
CPT/HCPCS: 36416; 71045; 80053; 81003; 81015; 81025; 82010; 82330; 82803; 83735; 83930; 85025; 93005; 96361; 96372; 96374; 96375; J0696; J1200; J1630; J1815; J2405; Q0162

== ENCOUNTER 2022-11-21 19:57 | Inpatient (IN) | payer OTHER, SELFPAY ==
[~2022-11-21 19:57] MED LIST changes: -ISOVUE-370 76%-LOCM 1 ML ONE; +Iopamidol-370 76% 500 ML MDV (1 ML CHARGE) ONE
[2022-11-21] MEDS ORDERED: Ondansetron PF 4 MG/2 ML Vial ONE (20:32)
[2022-11-21] MEDS ORDERED: Metoclopramide HCl 10 MG/2 ML VIAL ONE (20:44)
[2022-11-21 20:57] LABS: Hemoglobin 15.7 g/dL (12.0-16.0); Mean Corpuscular HGB CONC 33.9 g/dL (32.0-36.0); Mean Corpuscular Hemoglobin 29.8 pg (27.0-31.0); Mean Corpuscular Volume 87.9 fl (78.0-98.0); Mean Platelet Volume 8.6 fL (7.4-10.4); Platelet Count 423 10x3/uL (130-400); RBC Distribution Width 12.3 % (11.5-14.5); Red Blood Cell (RBC) Count 5.26 mill/uL (4.20-5.40); White Blood Cell (WBC) Count 21.8 10x3/uL (4.8-10.8)
[2022-11-21] MEDS ORDERED: LORazepam 2 MG/ML SYR.(CARPUJECT) ONE ×2 (21:09→22:19)
[2022-11-21 21:12] LABS: ALT (SGPT) 9 U/L (8-55); AST (SGOT) 11 U/L (5-34); Albumin 4.8 g/dL (3.5-5.0); Alkaline Phosphatase 73 U/L (40-110); Anion Gap 23 mmol/L (10-20); BUN (Urea Nitrogen) 17 mg/dL (7.0-18.7); Bilirubin, Total 0.8 mg/dL (0.2-1.2); Calc. Creatinine Clearance 0 mL/min (70-130); Calcium 9.7 mg/dL (7.8-10.44); Carbon Dioxide 10 mmol/L (22-29); Chloride 106 mmol/L (98-107); Estimated GFR 65; Globulin 3.7 g/dL (2.4-3.5); Glucose 399 mg/dL (70-105); Lipase 27 U/L (8-78); Magnesium 1.7 mg/dL (1.6-2.6); Potassium 4.3 mmol/L (3.5-5.1); Protein, Total 8.5 g/dL (6.0-8.3); Sodium 135 mmol/L (136-145)
[2022-11-21 21:16] LABS: Band 9 % (5-11); Lymphocytes 3 % (21-51); MDiff Complete? YES; Neutrophil 88 % (42-75); Platelet Morphology Comment Appears Increased; RBC Morphology Normal
[2022-11-21 22:14] LABS: BHCG - Serum Negative (NEGATIVE); Pregs Control Background? CLEAR/WHITE (CLR/WHITE); Pregs Control Bar Appear? YES (CONTROL BAR)
[2022-11-21] MEDS ORDERED: INSULIN REGULAR IN 0.9 % NACL 100 UNIT/100 ML BAG ONE (22:14)
[2022-11-21 22:30] LABS: Bilirubin Negative (Negative); Blood, Urine Negative (Negative); Clarity Clear (Clear); Glucose, Urine (Dipstick) Greater than 1000 mg/dL (Negative); Ketone, Urine 100 mg/dL (Negative); Leukocyte Negative Leu/uL (Negative); Nitrite Negative (Negative); Protein, Urine (Dipstick) Negative (Neg-Trace); Specific Gravity, Urine 1.036 (1.002-1.036); Urobilinogen Normal mg/dL (Less than 2)
[2022-11-21] MEDS ORDERED: HUMULIN R 100 UNITS in Sodium Chloride 0.9% 100 ML IVPB SCH (22:30)
[2022-11-21] MEDS ORDERED: Dextrose 50% Abboject 50 ML SYRINGE SLOW IVP PRN (22:30)
[2022-11-21] MEDS ORDERED: Sodium Chloride 0.9% 1,000 ML IV PRN ×4 (22:30)
[2022-11-21] MEDS ORDERED: Dextrose 5% in Water 1,000 ML IV PRN (22:30)
[2022-11-21] MEDS ORDERED: D5 1/2 NS w/20 mEq KCL 1,000 ML IV PRN (22:30)
[2022-11-21] MEDS ORDERED: NS 0.9% w/ 20 MEQ KCL 1,000 ML/1,000 ML BAG IV PRN ×2 (22:30)
[2022-11-21] MEDS ORDERED: Dextrose 5 %-0.45 % NaCl 1,000 ML IV PRN (22:30)
[2022-11-21] MEDS ORDERED: Electrolyte Replacement Protocol FS PRN (22:30)
[2022-11-22] MEDS ORDERED: Ondansetron ODT 4 MG TAB PO PRN (00:27)
[2022-11-22] MEDS ORDERED: Acetaminophen 650 MG Suppository PR PRN (00:27)
[2022-11-22] MEDS ORDERED: Acetaminophen 325 MG TAB PO PRN (00:27)
[2022-11-22] MEDS ORDERED: Ondansetron PF 4 MG/2 ML Vial IVP PRN (00:27)
[2022-11-22] MEDS ORDERED: NS 0.9% w/ 20 MEQ KCL 1,000 ML IV PRN ×2 (00:29)
[2022-11-22] MEDS ORDERED: Sodium Chloride 0.9% 1,000 ML IV PRN ×4 (00:29)
[2022-11-22] MEDS ORDERED: Dextrose 5 %-0.45 % NaCl 1,000 ML IV PRN (00:29)
[2022-11-22] MEDS ORDERED: HUMULIN R 100 UNITS in Sodium Chloride 0.9% 100 ML IVPB SCH (00:30)
[2022-11-22] MEDS: D5 1/2 NS w/20 mEq KCL 1,000 ML IV PRN ×4 (00:38→15:01)
[2022-11-22] MEDS ORDERED: Electrolyte Replacement Protocol 1 EACH FS ONE (00:48)
[2022-11-22] MEDS: clonazePAM 1 MG TAB PO PRN ×2 (00:51→12:57)
[2022-11-22] MEDS ORDERED: Magnesium 2 GM/50 ML(in water) 2 GM in Premix Bag 1 BAG IVPB SCH (01:00)
[2022-11-22 02:51] LABS: SARS-CoV-2 NAA Rapid Test Not Detected (NotDetected)
[2022-11-22 03:29] LABS: Anion Gap 16 mmol/L (10-20); BUN (Urea Nitrogen) 14 mg/dL (7.0-18.7); Calc. Creatinine Clearance 131 mL/min (70-130); Calcium 8.8 mg/dL (7.8-10.44); Carbon Dioxide 12 mmol/L (22-29); Chloride 111 mmol/L (98-107); Estimated GFR 110; Glucose 125 mg/dL (70-105); Sodium 135 mmol/L (136-145)
[2022-11-22 04:48] LABS: Magnesium 1.7 mg/dL (1.6-2.6)
[2022-11-22] MEDS ORDERED: Dextrose 5% in Water 1,000 ML IV PRN ×2 (07:18→11:45)
[2022-11-22] MEDS ORDERED: Dextrose 50% Abboject 50 ML SYRINGE SLOW IVP PRN (07:18)
[2022-11-22 07:56] LABS: Hemoglobin A1c 7.1 % (4.0-6.0)
[2022-11-22 08:01] LABS: Hemoglobin 13.3 g/dL (12.0-16.0); Mean Corpuscular HGB CONC 33.5 g/dL (32.0-36.0); Mean Corpuscular Hemoglobin 29.8 pg (27.0-31.0); Red Blood Cell (RBC) Count 4.47 mill/uL (4.20-5.40)
[2022-11-22 08:10] LABS: Anion Gap 12 mmol/L (10-20); BUN (Urea Nitrogen) 8 mg/dL (7.0-18.7); Calc. Creatinine Clearance 145 mL/min (70-130); Calcium 8.1 mg/dL (7.8-10.44); Carbon Dioxide 16 mmol/L (22-29); Chloride 110 mmol/L (98-107); Estimated GFR 117; Glucose 116 mg/dL (70-105); Sodium 134 mmol/L (136-145)
[2022-11-22] MEDS ORDERED: Famotidine/PF 20 mg/2ml Vial SLOW IVP SCH (09:00)
[2022-11-22 10:40] LABS: #Eosinphils 0.1 thou/uL (0.0-0.7); #Lymphocytes 1.3 thou/uL (1.20-3.40); #Monocytes 0.5 thou/uL (0.11-0.59); #Neutrophils 6.8 thou/uL (1.40-6.50); %Basophils 0.4 % (0.0-1.0); %Lymphocytes 15.3 % (21.0-51.0); %Monocytes 5.9 % (0.0-10.0); %Neutrophils 77.4 % (42.0-75.0); Platelet Morphology Comment PLT clumps seen-ADEQ; RBC Distribution Width 12.4 % (11.5-14.5); White Blood Cell (WBC) Count 8.8 10x3/uL (4.8-10.8)
[2022-11-22] MEDS ORDERED: HumaLOG 300 UNITS/3 ML VIAL SC PRN (11:45)
[2022-11-22] MEDS ORDERED: Dextrose 50% Abboject 50 ML SYRINGE IVP PRN (11:45)
[2022-11-22] MEDS ORDERED: Insulin Glargine 30 UNITS/0.3 ML VIAL SC SCH (11:45)
[2022-11-22 12:40] LABS: Anion Gap 14 mmol/L (10-20); BUN (Urea Nitrogen) 7 mg/dL (7.0-18.7); Calc. Creatinine Clearance 126 mL/min (70-130); Calcium 7.9 mg/dL (7.8-10.44); Carbon Dioxide 14 mmol/L (22-29); Chloride 108 mmol/L (98-107); Estimated GFR 105; Glucose 307 mg/dL (70-105); Potassium 4.5 mmol/L (3.5-5.1); Sodium 131 mmol/L (136-145)
[2022-11-22 16:11] LABS: Anion Gap 11 mmol/L (10-20); BUN (Urea Nitrogen) 7 mg/dL (7.0-18.7); Calc. Creatinine Clearance 121 mL/min (70-130); Calcium 8.1 mg/dL (7.8-10.44); Carbon Dioxide 15 mmol/L (22-29); Chloride 111 mmol/L (98-107); Estimated GFR 100; Glucose 270 mg/dL (70-105); Potassium 3.8 mmol/L (3.5-5.1); Sodium 133 mmol/L (136-145)
[2022-11-22 18:22] LABS: Anion Gap 10 mmol/L (10-20); BUN (Urea Nitrogen) 6 mg/dL (7.0-18.7); Calc. Creatinine Clearance 138 mL/min (70-130); Carbon Dioxide 18 mmol/L (22-29); Chloride 113 mmol/L (98-107); Estimated GFR 116; Glucose 85 mg/dL (70-105); Sodium 137 mmol/L (136-145)
[2022-11-22 18:35] VITALS: TEMP 98.8
[2022-11-23] MEDS ORDERED: Insulin Glargine 30 UNITS/0.3 ML VIAL SC SCH (09:00)
== END 2022-11-22 19:24 | disposition home or self-care (01) | DRG 638 ==
LOC: ERS 19:57 → IMCU/EMU 23:32
PROVIDERS: ADMIT Internal Medicine; ATTEND Hospitalist
DX: E10.10 Type 1 diabetes mellitus with ketoacidosis without coma (principal); N17.9 Acute kidney failure, unspecified; Z20.822 Contact with and (suspected) exposure to COVID-19; E10.42 Type 1 diabetes mellitus with diabetic polyneuropathy; G43.909 Migraine, unspecified, not intractable, without status migrainosus; F41.9 Anxiety disorder, unspecified; F31.9 Bipolar disorder, unspecified; E86.0 Dehydration; F43.10 Post-traumatic stress disorder, unspecified; Z90.49 Acquired absence of other specified parts of digestive tract; Z79.4 Long term (current) use of insulin; Z88.1 Allergy status to other antibiotic agents; Z79.899 Other long term (current) drug therapy; Z82.49 Family history of ischemic heart disease and other diseases of the circulatory system; Z87.891 Personal history of nicotine dependence
CPT/HCPCS: 36415; 36416; 74177; 80048; 80053; 81003; 82010; 83036; 83690; 83735; 84100; 84703; 85025; 96365; 96366; 96368; 96375; 96376; J1650; J1815; J2060; J2405; J2765; J3475; J3480; S0028

== ENCOUNTER 2023-04-28 21:21 | Inpatient (IN) | payer OTHER ==
[2023-04-28] MEDS ORDERED: Ondansetron PF 4 MG/2 ML Vial ONE (21:37)
[2023-04-28] MEDS ORDERED: LORazepam 2 MG/ML SYR.(CARPUJECT) ONE (21:52)
[2023-04-28 22:05] LABS: #Basophils 0.1 thou/uL (0.0-0.2); #Eosinphils 0.1 thou/uL (0.0-0.7); #Monocytes 0.7 thou/uL (0.11-0.59); #Neutrophils 6.8 thou/uL (1.40-6.50); %Basophils 0.8 % (0.0-1.0); %Eosinophils 0.9 % (0.0-10.0); %Neutrophils 63.1 % (42.0-75.0); Hematocrit 39.8 % (36.0-47.0); Mean Corpuscular HGB CONC 32.7 g/dL (32.0-36.0); Mean Corpuscular Hemoglobin 27.5 pg (27.0-31.0); Mean Corpuscular Volume 84.3 fl (78.0-98.0); Mean Platelet Volume 10.7 fL (7.4-10.4); Platelet Count 410 10x3/uL (130-400); RBC Distribution Width 13.2 % (11.5-14.5); Red Blood Cell (RBC) Count 4.72 mill/uL (4.20-5.40); White Blood Cell (WBC) Count 10.8 10x3/uL (4.8-10.8)
[2023-04-28 22:08] LABS: Actual Bicarbonate (HCO3v) 16.2 mEq/L (22-28); Base Excess -7.8 mEq/L (-2.0 to +3.0); Calcium, Ionized (venous) 1.14 mmol/L (1.16-1.32); Chloride (VBG) 99 mmol/L (98-106); Hematocrit-VBG 41 % (36.0-47.0); Potassium (VBG) 4.77 mmol/L (3.70-5.30); Sodium 132.6 mmol/L (133-146)
[2023-04-28 22:18] LABS: BHCG - Serum Negative (NEGATIVE); Pregs Control Background? CLEAR/WHITE (CLR/WHITE); Pregs Control Bar Appear? YES (CONTROL BAR)
[2023-04-28 22:32] LABS: ALT (SGPT) 11 U/L (8-55); AST (SGOT) 13 U/L (5-34); Albumin 4.3 g/dL (3.5-5.0); Alkaline Phosphatase 73 U/L (40-110); Anion Gap 20 mmol/L (10-20); BUN (Urea Nitrogen) 16 mg/dL (7.0-18.7); Bilirubin, Total 0.4 mg/dL (0.2-1.2); Calc. Creatinine Clearance 0 mL/min (70-130); Calcium 9.4 mg/dL (7.8-10.44); Carbon Dioxide 14 mmol/L (22-29); Chloride 98 mmol/L (98-107); Estimated GFR 58; Globulin 3.5 g/dL (2.4-3.5); Potassium 4.7 mmol/L (3.5-5.1); Protein, Total 7.8 g/dL (6.0-8.3); Sodium 127 mmol/L (136-145)
[2023-04-28] MEDS ORDERED: Promethazine HCl 25 MG/ML VIAL ONE (22:32)
[2023-04-28 22:35] LABS: Troponin I Less than 0.010 ng/mL (< 0.028)
[2023-04-28 22:54] LABS: Glucose 525 mg/dL (70-105)
[2023-04-28 23:03] LABS: Bacteria/HPF None Seen HPF (None Seen); Bilirubin Negative (Negative); Blood, Urine Negative (Negative); CAUTI Indications for Culture Pelvic or flank pain; Clarity Clear (Clear); Glucose, Urine (Dipstick) Greater than 1000 mg/dL (Negative); Ketone, Urine 100 mg/dL (Negative); Leukocyte Negative Leu/uL (Negative); Nitrite Negative (Negative); Protein, Urine (Dipstick) Negative (Neg-Trace); RBC/HPF 0-3 HPF (0-3); Specific Gravity, Urine 1.025 (1.002-1.036); Urobilinogen Normal mg/dL (Less than 2); WBC/HPF 0-3 HPF (0-3)
[2023-04-28 23:04] LABS: Urine Culture Reflex No No
[2023-04-28] MEDS ORDERED: INSULIN REGULAR IN 0.9 % NACL 100 UNITS/100 ML BAG ONE (23:46)
[2023-04-28] MEDS ORDERED: Insulin Regular 300 UNITS/3 ML VIAL ONE (23:46)
[2023-04-28] MEDS ORDERED: Dextrose 5 %-0.45 % NaCl 1,000 ML IV PRN (23:47)
[2023-04-28] MEDS ORDERED: Sodium Chloride 0.9% 1,000 ML IV PRN ×4 (23:47)
[2023-04-28] MEDS ORDERED: Electrolyte Replacement Protocol 1 EACH IVPB SCH (23:47)
[2023-04-28] MEDS ORDERED: Dextrose 50% Abboject 50 ML SYRINGE SLOW IVP PRN (23:47)
[2023-04-28] MEDS ORDERED: NS 0.9% w/ 20 MEQ KCL 1,000 ML IV PRN ×2 (23:47)
[2023-04-28] MEDS ORDERED: Ondansetron PF 4 MG/2 ML Vial IVP PRN (23:49)
[2023-04-28] MEDS ORDERED: Ondansetron ODT 4 MG TAB PO PRN (23:49)
[2023-04-28] MEDS ORDERED: Acetaminophen 325 MG TAB PO PRN (23:49)
[2023-04-28] MEDS ORDERED: Calcium Carbonate 500 MG ChewTAB PO PRN (23:49)
[2023-04-28] MEDS ORDERED: clonazePAM 1 MG TAB PO PRN (23:50)
[2023-04-29 02:29] VITALS: BMI 28.8
[2023-04-29 02:30] LABS: Anion Gap 17 mmol/L (10-20); BUN (Urea Nitrogen) 15 mg/dL (7.0-18.7); Calc. Creatinine Clearance 86 mL/min (70-130); Calcium 8.3 mg/dL (7.8-10.44); Carbon Dioxide 15 mmol/L (22-29); Chloride 103 mmol/L (98-107); Estimated GFR 70; Magnesium 1.9 mg/dL (1.6-2.6); Phosphorus 2.5 mg/dL (2.3-4.7); Potassium 4.4 mmol/L (3.5-5.1); Sodium 131 mmol/L (136-145)
[2023-04-29] MEDS ORDERED: NS 0.9% w/ 20 MEQ KCL 1,000 ML ONE (02:30)
[2023-04-29] MEDS ORDERED: NS 0.9% w/ 20 MEQ KCL 1,000 ML/1,000 ML BAG IV SCH (02:30)
[2023-04-29 02:38] LABS: Lactic Acid 2.4 mmol/L (0.5-2.2)
[2023-04-29 02:42] LABS: Glucose 417 mg/dL (70-105)
[2023-04-29 02:43] LABS: Hemoglobin A1c 7.1 % (4.0-6.0)
[2023-04-29] MEDS ORDERED: D5 1/2 NS w/20 mEq KCL 1,000 ML ONE (02:49)
[2023-04-29] MEDS: D5 1/2 NS w/20 mEq KCL 1,000 ML IV PRN ×3 (03:00→20:26)
[2023-04-29] MEDS ORDERED: risperiDONE 1 MG TAB ONE (03:45)
[2023-04-29] MEDS ORDERED: risperiDONE 1 MG TAB PO SCH ×2 (03:45→21:00)
[2023-04-29 04:15] LABS: #Basophils 0.1 thou/uL (0.0-0.2); #Eosinphils 0.1 thou/uL (0.0-0.7); #Monocytes 0.8 thou/uL (0.11-0.59); #Neutrophils 3.1 thou/uL (1.40-6.50); %Basophils 0.7 % (0.0-1.0); %Eosinophils 1.2 % (0.0-10.0); %Lymphocytes 47.6 % (21.0-51.0); %Monocytes 9.8 % (0.0-10.0); %Neutrophils 40.6 % (42.0-75.0); Hematocrit 33.6 % (36.0-47.0); Hemoglobin 10.9 g/dL (12.0-16.0); Mean Corpuscular HGB CONC 32.4 g/dL (32.0-36.0); Mean Corpuscular Hemoglobin 27.6 pg (27.0-31.0); Mean Corpuscular Volume 85.1 fl (78.0-98.0); Mean Platelet Volume 10.3 fL (7.4-10.4); Platelet Count 339 10x3/uL (130-400); RBC Distribution Width 13.2 % (11.5-14.5); Red Blood Cell (RBC) Count 3.95 mill/uL (4.20-5.40); White Blood Cell (WBC) Count 7.6 10x3/uL (4.8-10.8)
[2023-04-29 07:02] LABS: Anion Gap 12 mmol/L (10-20); BUN (Urea Nitrogen) 13 mg/dL (7.0-18.7); Calc. Creatinine Clearance 109 mL/min (70-130); Calcium 8.5 mg/dL (7.8-10.44); Carbon Dioxide 19 mmol/L (22-29); Chloride 108 mmol/L (98-107); Estimated GFR 94; Glucose 116 mg/dL (70-105); Sodium 135 mmol/L (136-145)
[2023-04-29] MEDS ORDERED: Magnesium 2 GM/50 ML(in water) 2 GM in Premix Bag 1 BAG IVPB SCH (08:00)
[2023-04-29 08:10] VITALS: BP 102/57
[2023-04-29] MEDS ORDERED: Magnesium 2 GM/50 ML BAG (IN WATER) ONE (08:12)
[2023-04-29 08:15] LABS: Anion Gap 13 mmol/L (10-20); BUN (Urea Nitrogen) 12 mg/dL (7.0-18.7); Calc. Creatinine Clearance 107 mL/min (70-130); Calcium 8.2 mg/dL (7.8-10.44); Carbon Dioxide 17 mmol/L (22-29); Chloride 108 mmol/L (98-107); Estimated GFR 91; Glucose 221 mg/dL (70-105); Potassium 4.7 mmol/L (3.5-5.1); Sodium 133 mmol/L (136-145)
[2023-04-29] MEDS ORDERED: Insulin Glargine 30 UNITS/0.3 ML VIAL SC SCH ×2 (09:00→21:00)
[2023-04-29] MEDS ORDERED: buPROPion HCl 100 MG TAB PO SCH (09:00)
[2023-04-29] MEDS ORDERED: Famotidine 20 MG TAB ONE (10:06)
[2023-04-29] MEDS: Famotidine 20 MG TAB PO SCH ×2 (10:19→20:25)
[2023-04-29] MEDS: Famotidine/PF 20 mg/2ml Vial SLOW IVP SCH ×2 (10:21→20:19)
[2023-04-29] MEDS ORDERED: Dextrose 50% Abboject 50 ML SYRINGE SLOW IVP PRN (11:36)
[2023-04-29] MEDS ORDERED: Glucagon 1 MG/ML KIT IM PRN (11:36)
[2023-04-29] MEDS ORDERED: Insulin Regular 300 UNITS/3 ML VIAL SC PRN (11:36)
[2023-04-29] MEDS ORDERED: Dextrose 5% in Water 1,000 ML IV PRN (11:36)
[2023-04-29] MEDS: HUMULIN R 100 UNITS in Sodium Chloride 0.9% 100 ML IVPB SCH ×2 (11:54→13:06)
[2023-04-29] MEDS ORDERED: clonazePAM 1 MG TAB ONE (12:00)
[2023-04-29 14:24] LABS: Anion Gap 11 mmol/L (10-20); BUN (Urea Nitrogen) 12 mg/dL (7.0-18.7); Calc. Creatinine Clearance 96 mL/min (70-130); Calcium 8.6 mg/dL (7.8-10.44); Carbon Dioxide 18 mmol/L (22-29); Chloride 108 mmol/L (98-107); Estimated GFR 80; Glucose 219 mg/dL (70-105); Potassium 4.3 mmol/L (3.5-5.1); Sodium 133 mmol/L (136-145)
[2023-04-29 17:56] LABS: Anion Gap 16 mmol/L (10-20); BUN (Urea Nitrogen) 10 mg/dL (7.0-18.7); Calc. Creatinine Clearance 109 mL/min (70-130); Calcium 8.8 mg/dL (7.8-10.44); Carbon Dioxide 16 mmol/L (22-29); Chloride 109 mmol/L (98-107); Estimated GFR 94; Glucose 136 mg/dL (70-105); Potassium 4.5 mmol/L (3.5-5.1); Sodium 136 mmol/L (136-145)
[2023-04-29] MEDS ORDERED: clonazePAM 1 MG TAB PO SCH (21:00)
[2023-04-29 23:23] VITALS: TEMP 98.5
[2023-04-30 00:20] LABS: Anion Gap 14 mmol/L (10-20); BUN (Urea Nitrogen) 11 mg/dL (7.0-18.7); Calc. Creatinine Clearance 97 mL/min (70-130); Calcium 9.4 mg/dL (7.8-10.44); Carbon Dioxide 18 mmol/L (22-29); Chloride 108 mmol/L (98-107); Estimated GFR 81; Glucose 171 mg/dL (70-105); Potassium 4.3 mmol/L (3.5-5.1); Sodium 136 mmol/L (136-145)
[2023-04-30] MEDS ORDERED: BuPROPion XL 150 MG ER.TAB PO SCH (09:00)
[2023-04-30] MEDS ORDERED: Gabapentin 300 MG CAP PO SCH (09:00)
== END 2023-04-30 | disposition home or self-care (01) | DRG 638 ==
LOC: ERS 21:21 → ERHOLD 23:49 → IMCU/EMU 04-29 13:24
PROVIDERS: ADMIT Student in an Organized Health Care Education/Training Program; ATTEND Hospitalist
PROC: 4A043R1 Measurement of Venous Saturation, Peripheral, Percutaneous Approach (ICD-10-PCS; principal; 2023-04-28)
DX: E10.10 Type 1 diabetes mellitus with ketoacidosis without coma (principal); N17.9 Acute kidney failure, unspecified; Z88.1 Allergy status to other antibiotic agents; Z79.899 Other long term (current) drug therapy; Z79.4 Long term (current) use of insulin; E10.42 Type 1 diabetes mellitus with diabetic polyneuropathy; Z90.49 Acquired absence of other specified parts of digestive tract; Z82.49 Family history of ischemic heart disease and other diseases of the circulatory system; F41.9 Anxiety disorder, unspecified
CPT/HCPCS: 36415; 36416; 71045; 80053; 81001; 82010; 82805; 83036; 83605; 83690; 83735; 84100; 84484; 84703; 85025; 87040; 93005; J1815; J2060; J2405; J2550; J3475; J3480; J3490; J7999

== ENCOUNTER 2024-01-06 15:31 | Emergency (ER) | payer OTHER ==
[2024-01-06] MEDS ORDERED: diphenhydrAMINE 50 MG CAP ONE (16:19)
[2024-01-06] MEDS ORDERED: methylPREDNISolone Sod Succ/PF 125 MG/2 ML VIAL ONE (16:19)
== END 2024-01-06 17:17 | disposition home or self-care (01) ==
LOC: ERS 15:31
DX: B89 Unspecified parasitic disease (principal); E10.40 Type 1 diabetes mellitus with diabetic neuropathy, unspecified; F17.290 Nicotine dependence, other tobacco product, uncomplicated; Z79.899 Other long term (current) drug therapy
CPT/HCPCS: 99282; J2930

== ENCOUNTER 2024-07-25 06:06 | Inpatient (IN) | payer OTHER ==
[2024-07-25 06:27] LABS: Actual Bicarbonate (HCO3v) 16.3 mEq/L (22-28); Base Excess -6.6 mEq/L (-2.0 to +3.0); Chloride (VBG) 100 mmol/L (98-106); Hematocrit-VBG 41 % (36.0-47.0); Hemoglobin (Hb) 14.1 g/dL (11.7-15.5); Potassium (VBG) 4.32 mmol/L (3.70-5.30); Sodium 135 mmol/L (133-146); pH (venous) 7.409 (7.32-7.43)
[2024-07-25] MEDS ORDERED: Ondansetron PF 4 MG/2 ML Vial ONE (06:27)
[2024-07-25] MEDS: NS 0.9% w/ 20 MEQ KCL 1,000 ML IV PRN (06:32)
[2024-07-25] MEDS: Sodium Chloride 0.9% 1,000 ML IV PRN (06:32)
[2024-07-25 06:40] LABS: #Basophils 0.08 10x3/uL (0.0-0.2); %Basophils 0.8 % (0.0-1.0); %Eosinophils 1.5 % (0.0-10.0); %Lymphocytes 37.7 % (21.0-51.0); %Monocytes 6.6 % (0.0-10.0); %Neutrophils 53.1 % (42.0-75.0); Hemoglobin 13.5 g/dL (12.0-16.0); Mean Corpuscular HGB CONC 32.9 g/dL (32.0-36.0); Mean Corpuscular Hemoglobin 26.3 pg (27.0-31.0); Mean Corpuscular Volume 79.9 fL (78.0-98.0); Platelet Count 508 10x3/uL (130-400); RBC Distribution Width 13.9 % (11.5-14.5); Red Blood Cell (RBC) Count 5.13 mill/uL (4.20-5.40)
[2024-07-25 07:07] LABS: Troponin I 0.011 ng/mL (< 0.028)
[2024-07-25 07:33] LABS: ALT (SGPT) 7 U/L (8-55); AST (SGOT) 11 U/L (5-34); Albumin 3.8 g/dL (3.5-5.0); Alkaline Phosphatase 82 U/L (40-110); Anion Gap 21 mmol/L (10-20); BUN (Urea Nitrogen) 13 mg/dL (7.0-18.7); Bilirubin, Total 0.5 mg/dL (0.2-1.2); Calc. Creatinine Clearance 0 mL/min (70-130); Calcium 8.9 mg/dL (7.8-10.44); Carbon Dioxide 13 mmol/L (22-29); Chloride 103 mmol/L (98-107); Estimated GFR 71; Globulin 3.2 g/dL (2.4-3.5); Glucose 469 mg/dL (70-105); Magnesium 1.9 mg/dL (1.6-2.6); Potassium 4.5 mmol/L (3.5-5.1); Sodium 132 mmol/L (136-145)
[2024-07-25 08:08] LABS: Phosphorus 3.4 mg/dL (2.3-4.7)
[2024-07-25] MEDS ORDERED: Dicyclomine 20 MG/2 ML VIAL ONE (08:17)
[2024-07-25] MEDS ORDERED: Promethazine HCl 25 MG/ML VIAL ONE (08:17)
[2024-07-25] MEDS ORDERED: INSULIN REGULAR IN 0.9 % NACL 100 ML ONE (08:18)
[2024-07-25 09:01] LABS: Bacteria/HPF None Seen HPF (None Seen); Bilirubin Negative (Negative); Blood, Urine Negative (Negative); CAUTI Indications for Culture Dysuria,urgency,freq; Clarity Clear (Clear); Glucose, Urine (Dipstick) Greater than 1000 mg/dL (Negative); Ketone, Urine 60 mg/dL (Negative); Leukocyte Negative Leu/uL (Negative); Nitrite Negative (Negative); Protein, Urine (Dipstick) Negative (Neg-Trace); RBC/HPF 0-3 HPF (0-3); Specific Gravity, Urine 1.031 (1.002-1.036); Urobilinogen Normal mg/dL (Less than 2); WBC/HPF 0-3 HPF (0-3)
[2024-07-25 09:03] LABS: Urine Culture Reflex No No
[2024-07-25] MEDS ORDERED: Acetaminophen 325 MG TAB PO PRN (09:04)
[2024-07-25] MEDS ORDERED: Sodium Chloride 0.9% 1,000 ML IV PRN ×3 (09:04)
[2024-07-25] MEDS ORDERED: Dextrose 5 %-0.45 % NaCl 1,000 ML IV PRN (09:04)
[2024-07-25] MEDS ORDERED: NS 0.9% w/ 20 MEQ KCL 1,000 ML IV PRN (09:04)
[2024-07-25] MEDS ORDERED: INSULIN REGULAR IN 0.9 % NACL 100 ML IVPB SCH (09:15)
[2024-07-25] MEDS ORDERED: Electrolyte Replacement Protocol FS PRN (09:30)
[2024-07-25 09:46] VITALS: BMI 38.0
[2024-07-25] MEDS ORDERED: NS 0.9% w/ 20 MEQ KCL 1,000 ML ONE (09:53)
[2024-07-25 10:00] LABS: Anion Gap 13 mmol/L (10-20); BHCG - Serum Negative (NEGATIVE); BUN (Urea Nitrogen) 12 mg/dL (7.0-18.7); Calc. Creatinine Clearance 141 mL/min (70-130); Calcium 8.1 mg/dL (7.8-10.44); Carbon Dioxide 18 mmol/L (22-29); Chloride 111 mmol/L (98-107); Estimated GFR 92; Glucose 209 mg/dL (70-105); Potassium 3.7 mmol/L (3.5-5.1); Pregs Control Background? CLEAR/WHITE (CLR/WHITE); Pregs Control Bar Appear? YES (CONTROL BAR); Sodium 138 mmol/L (136-145)
[2024-07-25] MEDS: D5 1/2 NS w/20 mEq KCL 1,000 ML IV PRN (10:22)
[2024-07-25] MEDS: Dextrose 50% Abboject 50 ML SYRINGE SLOW IVP PRN (11:14)
[2024-07-25] MEDS ORDERED: D5 1/2 NS w/20 mEq KCL 1,000 ML ONE (12:35)
[2024-07-25] MEDS ORDERED: Dextrose 5% in Water 1,000 ML IV PRN (13:42)
[2024-07-25] MEDS ORDERED: Glucagon 1 MG/ML KIT IM PRN (13:42)
[2024-07-25] MEDS ORDERED: Dextrose 50% Abboject 50 ML SYRINGE SLOW IVP PRN (13:42)
[2024-07-25] MEDS ORDERED: Magnesium 2 GM/50 ML BAG (IN WATER) ONE (14:51)
[2024-07-25] MEDS: Magnesium 2 GM/50 ML(in water) 2 GM in Premix 1 BAG IVPB SCH (15:00)
[2024-07-25] MEDS: Insulin Glargine 30 UNITS/0.3 ML VIAL SC SCH (15:51)
[2024-07-25] MEDS ORDERED: Insulin Lispro 100 UNIT/ML 10 ML VIAL ONE (16:04)
[2024-07-25] MEDS: Insulin Lispro 100 UNIT/ML 10 ML VIAL SC PRN ×2 (16:07→19:20)
[2024-07-25 16:40] LABS: Anion Gap 17 mmol/L (10-20); BUN (Urea Nitrogen) 10 mg/dL (7.0-18.7); Calc. Creatinine Clearance 126 mL/min (70-130); Carbon Dioxide 17 mmol/L (22-29); Chloride 105 mmol/L (98-107); Estimated GFR 80; Glucose 402 mg/dL (70-105); Potassium 4.5 mmol/L (3.5-5.1); Sodium 134 mmol/L (136-145)
[2024-07-25 18:39] LABS: Anion Gap 13 mmol/L (10-20); BUN (Urea Nitrogen) 9 mg/dL (7.0-18.7); Calc. Creatinine Clearance 145 mL/min (70-130); Calcium 8.3 mg/dL (7.8-10.44); Carbon Dioxide 17 mmol/L (22-29); Chloride 106 mmol/L (98-107); Estimated GFR 94; Glucose 280 mg/dL (70-105); Potassium 4.1 mmol/L (3.5-5.1); Sodium 132 mmol/L (136-145)
[2024-07-25] MEDS: Electrolyte Replacement Protocol 1 EACH IVPB ONE (19:49)
[2024-07-25] MEDS: clonazePAM 1 MG TAB PO SCH (23:40)
[2024-07-25] MEDS: risperiDONE 1 MG TAB PO SCH (23:40)
[2024-07-25] MEDS: Lactated Ringer's 500 ML IV SCH (23:45)
[2024-07-25] MEDS: Insulin Lispro 100 UNIT/ML 10 ML VIAL SC SCH (23:49)
[2024-07-26 06:03] LABS: #Basophils 0.08 10x3/uL (0.0-0.2); %Basophils 1.1 % (0.0-1.0); %Eosinophils 1.8 % (0.0-10.0); %Lymphocytes 46.8 % (21.0-51.0); %Monocytes 7.2 % (0.0-10.0); Hematocrit 35.5 % (36.0-47.0); Hemoglobin 11.5 g/dL (12.0-16.0); Mean Corpuscular HGB CONC 32.4 g/dL (32.0-36.0); Mean Corpuscular Hemoglobin 26.6 pg (27.0-31.0); Mean Corpuscular Volume 82.2 fL (78.0-98.0); Mean Platelet Volume 10.8 fL (7.4-10.4); Platelet Count 363 10x3/uL (130-400); RBC Distribution Width 14.3 % (11.5-14.5); Red Blood Cell (RBC) Count 4.32 mill/uL (4.20-5.40)
[2024-07-26 06:31] LABS: Anion Gap 12 mmol/L (10-20); BUN (Urea Nitrogen) 10 mg/dL (7.0-18.7); Calc. Creatinine Clearance 150 mL/min (70-130); Calcium 8.1 mg/dL (7.8-10.44); Carbon Dioxide 19 mmol/L (22-29); Chloride 107 mmol/L (98-107); Estimated GFR 99; Glucose 195 mg/dL (70-105); Potassium 3.8 mmol/L (3.5-5.1); Sodium 134 mmol/L (136-145)
[2024-07-26] MEDS: Magnesium 2 GM/50 ML(in water) 2 GM in Premix 1 BAG IVPB SCH (08:59)
[2024-07-26] MEDS: Enoxaparin 40 MG (0.4 mL) SYRINGE SC SCH (08:59)
[2024-07-26] MEDS ORDERED: Insulin Glargine 30 UNITS/0.3 ML VIAL SC SCH (09:00)
[2024-07-26] MEDS: Insulin Glargine 30 UNITS/0.3 ML VIAL SC SCH (09:00)
[2024-07-26] MEDS ORDERED: clonazePAM 1 MG TAB PO PRN ×2 (09:24→09:50)
[2024-07-26] MEDS: Gabapentin 300 MG CAP PO SCH (10:37)
[2024-07-26] MEDS: Escitalopram Oxalate 20 mg Tablet PO SCH (10:37)
[2024-07-26] MEDS: clonazePAM 1 MG TAB PO SCH (10:38)
[2024-07-26 15:29] VITALS: BP 121/79; TEMP 98.4
[2024-07-26] MEDS ORDERED: Atorvastatin Calcium 40 MG TAB PO SCH (21:00)
[2024-07-26] MEDS ORDERED: Gabapentin 300 MG CAP PO SCH (21:00)
[2024-07-26] MEDS ORDERED: risperiDONE 1 MG TAB PO SCH (21:00)
[2024-07-27] MEDS ORDERED: clonazePAM 1 MG TAB PO SCH (09:00)
[2024-07-27] MEDS ORDERED: risperiDONE 1 MG TAB PO SCH (09:00)
[2024-07-27] MEDS ORDERED: Bupropion 150 MG SR.TAB PO SCH (09:00)
== END 2024-07-26 11:01 | disposition home or self-care (01) | DRG 639 ==
LOC: ERS 06:06 → OBSVTOIN 08:33 → ERHOLD 08:33 → IMCU/EMU 17:07 → ERHOLD 17:48 → T4-B 19:05
PROVIDERS: ADMIT Internal Medicine; ATTEND Internal Medicine
DX: E10.10 Type 1 diabetes mellitus with ketoacidosis without coma (principal); F31.9 Bipolar disorder, unspecified; F41.9 Anxiety disorder, unspecified; Z79.4 Long term (current) use of insulin; Z79.890 Hormone replacement therapy
CPT/HCPCS: 36415; 36416; 80048; 81001; 82010; 82805; 83690; 83735; 84100; 84484; 84703; 85025; 93005; 96372; 96374; 96375; J1815; J2405; J2550; J3475; J3480; J7030; J7120; J7999